=== PATIENT | female | born 1995 | race Two or more races ===

== ENCOUNTER 2017-07-25 20:16 | Emergency (ER) | payer BC, OTHER ==
[2017-07-25 20:33] VITALS: BP 139/96
== END 2017-07-25 21:18 | disposition left against medical advice (07) ==
LOC: ED 20:16
DX: Z77.098 Contact with and (suspected) exposure to other hazardous, chiefly nonmedicinal, chemicals (principal); Z53.21 Procedure and treatment not carried out due to patient leaving prior to being seen by health care provider

== ENCOUNTER 2017-08-09 17:53 | Emergency (ER) | payer BC ==
[2017-08-09 18:01] VITALS: BP 123/64
[2017-08-09] MEDS ORDERED: Ibuprofen TAB* 600 MG PO ONE (18:20)
--- NOTE | 2017-08-09 18:20 | UC ---
Neck Pain HPI - HPI Summary HPI Summary: Hit her head on another dancers head on Friday night--no LOC - History of Current Complaint Chief Complaint: UCUpperExtremity Stated Complaint: NECK PAIN Time Seen by Provider: 08/09/17 18:10 Hx Obtained From: Patient Hx Last Menstrual Period: 07/31/17 ?: No Onset/Duration Of Injury/Symptoms: Days - 3 days ago Mechanism Of Injury: Blunt Trauma Timing: Constant Onset/Duration: Sudden Onset, Lasting Days - 3 Severity: Moderate Pain Intensity: 6 Pain Scale Used: 0-10 Numeric Location: Diffuse - posterior neck---mostly lateral to spine but does have some bone tenderness Character: Aching, Spasmotic Aggravating Factors: Nothing Alleviating Factors: Nothing Associated Signs & Symptoms: Positive: Headache - Allergies/Home Medications Allergies/Adverse Reactions: Allergies Allergy/AdvReac Type Severity Reaction Status Date / Time No Known Allergies Allergy Verified 07/25/17 20:32 Home Medications: Home Medications Iron Combinations [Iron Complex] 1 cap PO 08/09/17 [History] PMH/Surg Hx/FS Hx/Imm Hx Previously Healthy: Yes - Surgical History Surgical History: None - Family History Known Family History: Positive: None - Social History Occupation: Student Lives: Dormitory/Roommates Alcohol Use: Daily Substance Use Type: None Smoking Status (MU): Never Smoked Tobacco Review Of Systems Constitutional: Positive: Negative Skin: Positive: Negative Eyes: Positive: Photophobia ENT: Positive: Negative Respiratory: Positive: Negative Cardiovascular: Positive: Negative Gastrointestinal: Positive: Nausea - occ episodes after hitting head ( and was drinking) Genitourinary: Positive: Negative Musculoskeletal: Positive: Myalgia - cervical spine Neurological: Positive: Headache Psychological: Positive: Negative All Other Systems Reviewed And Are Negative: Yes Physical Exam Triage Information Reviewed: Yes Appearance: Well-Appearing, No Pain Distress, Well-Nourished Vital Signs: Initial Vital Signs Temp 97.5 F 08/09/17 17:56 Pulse 67 08/09/17 17:56 Resp 18 08/09/17 17:56 BP 123/64 08/09/17 17:56 Pulse Ox 100 08/09/17 17:56 Vital Signs Reviewed: Yes Eye Exam: Normal Eyes: Positive: Conjunctiva Clear, Other: - perrla,eomi, fundascopic WNL ENT Exam: Normal ENT: Positive: Normal ENT inspection, Hearing grossly normal, Pharynx normal, TMs normal. Negative: Nasal congestion, Nasal drainage, Tonsillar swelling, Tonsillar exudate, Trismus, Muffled/hoarse voice Dental Exam: Normal Neck exam: Normal Neck: Positive: Supple, Nontender, No Lymphadenopathy Respiratory Exam: Normal Respiratory: Positive: Chest non-tender, Lungs clear, Normal breath sounds, No respiratory distress, No accessory muscle use Cardiovascular Exam: Normal Cardiovascular: Positive: RRR, No Murmur, Pulses Normal, Brisk Capillary Refill Musculoskeletal Exam: Normal Musculoskeletal: Positive: Strength Intact, ROM Intact, No Edema Neurological Exam: Normal Neurological: Positive: Alert, Muscle Tone Normal Psychological Exam: Normal Skin Exam: Normal Diagnostics - Radiology No standard instances Xray Interpretation: No Acute Changes Radiology Interpretation Completed By: Radiologist Neck Pain Course/Dx - Course Course Of Treatment: muscle spasm cervical spine---Ibuprofen, Flexeril, Head Injury--ibuprofeb, head injury precautions, follow at [facility] - Differential Dx/Diagnosis Differential Dx/HQI/PQRI: Sprain, Torticollis Provider Diagnoses: Cervical Strain, Post concusive syndrome Discharge - Discharge Plan Condition: Stable Disposition: HOME Prescriptions: Cyclobenzaprine TAB* [Flexeril 10 MG TAB*] 10 mg PO TID PRN #15 tab PRN Reason: neck pain Ibuprofen TAB* [Motrin TAB* 600 MG] 600 mg PO Q6H PRN #30 tab PRN Reason: Pain Patient Education Materials: Cervical Strain (ED), Concussion (ED), Post Concussion Syndrome (ED), Acute Neck Pain (ED) Referrals: [facility] [Outside]
--- NOTE | 2017-08-09 18:47 | RAD ---
HISTORY: Neck pain, trauma COMPARISONS: None VIEWS: 5, Frontal, lateral, open-mouth odontoid, and bilateral oblique views of the cervical spine. FINDINGS: The cervical spine is visualized from the skull base through T1. ALIGNMENT: The alignment is normal. VERTEBRAL BODIES: The odontoid process is intact. The atlantoaxial intervals are symmetric. JOINTS: There is no subluxation or dislocation. The facet joints are unremarkable. There is no osseous neural foraminal narrowing on the oblique views INTERVERTEBRAL DISCS: The intervertebral disc heights are normal. SOFT TISSUE: The prevertebral soft tissues are normal. OTHER: The skull base is normal. The lung apices are clear. IMPRESSION: NO ACUTE OSSEOUS INJURY TO THE CERVICAL SPINE
[2017-08-09] MEDS ORDERED: Cyclobenzaprine TAB* 10 MG PO ONE (19:12)
== END 2017-08-09 19:25 | disposition home or self-care (01) ==
LOC: UCEAST 17:53
DX: S16.1XXA Strain of muscle, fascia and tendon at neck level, initial encounter (principal); W51.XXXA Accidental striking against or bumped into by another person, initial encounter; Y93.41 Activity, dancing; Y92.9 Unspecified place or not applicable; F07.81 Postconcussional syndrome; G44.309 Post-traumatic headache, unspecified, not intractable
CPT/HCPCS: 72050; 99212; A9270-GY; G0463